=== PATIENT | male | born 1990 | race Caucasian/White ===

== ENCOUNTER 2019-02-07 20:21 | Emergency (ER) | payer OTHER ==
[~2019-02-07] VITALS: Ht 160 cm; Wt 85.6 kg
[2019-02-07 20:22] VITALS: BP 133/88; PULSE 75; RESP 16; Ht 160 cm; Wt 85.6 kg
[2019-02-07] MEDS ORDERED: MED4DP PO (20:57)
[2019-02-07] MEDS ORDERED: CYCL10TA7 PO (20:58)
[2019-02-07] MEDS ORDERED: IBUP800T48 PO (20:58)
--- NOTE | 2019-02-07 20:58 | ERD ---
ER Documentation Chief Complaint Chief Complaint "low back problems" since Friday afternoon HPI 28-year-old male presents to ED complaining of low back pain x2 days. He states that he woke up from a nap and had a sudden onset of back pain and tightness in his lower left back. He states the pain is worse when he is standing and with activity and reports the pain is much better when he is sitting down and at rest. He denies any radiation of the pain. He states the pain is not sharp, achy pain that does not radiate anywhere. He has tried heat and ice application and has tried Tylenol Motrin with mild relief of his symptoms. He denies any injuries or trauma to his back. He denies any previous history of similar events. He denies past medical history He denies taking medications on a daily basis ROS All systems reviewed and are negative except as per history of present illness. Medications Home Meds Active Scripts Cyclobenzaprine Hcl* (Cyclobenzaprine Hcl*) 10 Mg Tablet, 10 MG PO TID, #15 TAB Prov:JYOTI CARLSON PA-C 02/07/19 Ibuprofen* (Motrin*) 800 Mg Tab, 800 MG PO Q6H PRN for PAIN AND OR ELEVATED TEMP, #30 TAB Prov:JYOTI CARLSON PA-C 02/07/19 Methylprednisolone* (Medrol* DOSE PACK) 4 Mg/Dose-Pack Tab.ds.pk, 4 MG PO . DIRECTED, #5 PACKET Prov:JYOTI CARLSON PA-C 02/07/19 Allergies Allergies: Coded Allergies: No Known Allergy (Unverified , 02/07/19) FmHx Family History: No diabetes Physical Exam Vitals Vital Signs Date Temp Pulse Resp B/P (MAP) Pulse Ox O2 O2 Flow FiO2 Time Delivery Rate 02/07/19 98.1 75 16 133/88 100 20:22 (103) Physical Exam Const: No acute distress Head: Atraumatic Eyes: Normal Conjunctiva ENT: Normal External Ears, Nose and Mouth. Neck: Full range of motion. No meningismus. Resp: Clear to auscultation bilaterally Cardio: Regular rate and rhythm, no murmurs Abd: Soft, non tender, non distended. Normal bowel sounds Skin: No petechiae or rashes Back: Tenderness to the left lower back. Pain with range of motion standing Ext: No cyanosis, or edema Neur: Awake and alert Psych: Normal Mood and Affect Procedures/MDM ED COURSE: The patient was stable throughout ED course. I kept the patient informed of laboratory and diagnostic imaging results throughout the ED course. DIAGNOSTIC IMAGING: none indicated at this time PROCEDURES: none MEDICATIONS GIVEN: [None.] MEDICAL DECISION MAKING: Patient is a 28-year-old male presenting with left lower back pain x2 days. He reports the pain was sudden onset after waking up from a nap. On physical exam he showed tenderness to the left lower back and pain with standing and range of motion. At this time I do not think x-ray imaging is necessary. I believe patient is suffering from low back muscle sprain or spasm. I have low suspicion for fracture, cauda equina syndrome, prostatitis, epidural abscess, cord compression. Vital signs were reviewed. Patient is afebrile. Patient was not hypoxic. Patient was hemodynamically stable. Patient was given prescriptions from a medications listed below. Patient was told to follow up with primary care for further care and management. PRESCRIPTION: flexeril, motrin, medrol dose pack DISCHARGE: At this time, patient is stable for discharge and outpatient management. I have instructed the patient to follow-up with his/her primary care physician in 1-2 days. I have discussed with the patient the possibility of needing to see a specialist for further workup and imaging studies if symptoms persist. I have instructed the patient to promptly return to the ER for any new or worsening symptoms including increased pain, fever, nausea, vomiting, weakness or LOC. The patient expressed understanding of and agreement with this plan. All questions were answered. Home care instructions were provided. Disclaimer: Inadvertent spelling and grammatical errors are likely due to EHR/dictation software use and do not reflect on the overall quality of patient care. Also, please note that the electronic time recorded on this note does not necessarily reflect the actual time of the patient encounter. Departure Diagnosis: Primary Impression: Back pain Back pain location: low back pain Chronicity: acute Back pain laterality: left Sciatica presence: without sciatica Qualified Codes: M54.5 - Low back pain Condition: Fair Patient Instructions: Back Pain (Acute Or Chronic) Referrals: COMM[facility]ITY CLINICS YOU HAVE RECEIVED A MEDICAL SCREENING EXAM AND THE RESULTS INDICATE THAT YOU DO NOT HAVE A CONDITION THAT REQUIRES URGENT TREATMENT IN THE EMERGENCY DEPARTMENT. FURTHER EVALUATION AND TREATMENT OF YOUR CONDITION CAN WAIT UNTIL YOU ARE SEEN IN YOUR DOCTORS OFFICE WITHIN THE NEXT 1-2 DAYS. IT IS YOUR RESPONSIBILITY TO MAKE AN APPOINTMENT FOR FOLOW-UP CARE. IF YOU HAVE A PRIMARY DOCTOR --you should call your primary doctor and schedule an appointment IF YOU DO NOT HAVE A PRIMARY DOCTOR YOU CAN CALL OUR PHYSICIAN REFERRAL HOTLINE AT IF YOU CAN NOT AFFORD TO SEE A PHYSICIAN YOU CAN CHOSE FROM THE FOLLOWING [facility] [address] [facility] [address] [facility] [address] [facility] [address] [facility] [address] [facility]. [facility] [address] [facility]. [facility] YOU HAVE RECEIVED A MEDICAL SCREENING EXAM AND THE RESULTS INDICATE THAT YOU DO NOT HAVE A CONDITION THAT REQUIRES URGENT TREATMENT IN THE EMERGENCY DEPARTMENT. FURTHER EVALUATION AND TREATMENT OF YOUR CONDITION CAN WAIT UNTIL YOU ARE SEEN IN YOUR DOCTORS OFFICE WITHIN THE NEXT 1-2 DAYS. IT IS YOUR RESPONSIBILITY TO MAKE AN APPOINTMENT FOR FOLOW-UP CARE. IF YOU HAVE A PRIMARY DOCTOR --you should call your primary doctor and schedule and appointment IF YOU DO NOT HAVE A PRIMARY DOCTOR YOU CAN CALL OUR PHYSICIAN REFERRAL HOTLINE AT . IF YOU CAN NOT AFFORD TO SEE A PHYSICIAN YOU CAN CHOSE FROM THE FOLLOWING [facility] INSTITUTIONS: [facility] [id number] [place] [address] [facility] [address] [place] [address] [facility] [address] [place] [address] Additional Instructions: Call your primary care doctor TOMORROW for an appointment during the next 1-2 days.See the doctor sooner or return here if your condition worsens before your appointment time. JYOTI CARLSON PA-C Feb 07, 2019 20:58
== END 2019-02-07 21:05 | disposition home or self-care (01) ==
LOC: FTE 20:21 → EDSEX 20:21 → FTE 21:05
DX: M54.5 Low back pain (principal)
CPT/HCPCS: 99283